=== PATIENT | male | born 1970 | race Caucasian/White ===

== ENCOUNTER 2020-01-02 17:33 | Inpatient (IN) | payer OTHER ==
[2020-01-02 18:30] VITALS: BMI 32.3
--- NOTE | 2020-01-02 20:36 | HP ---
COWS - Scale Resting Pulse: 2= [place] 101-120 Sweatin=Flushed/Facial Moisture Restless Observation: 0= Sits Still Pupil Size: 1= Pupils >than Normal Bone or Joint Aches: 2= Severe Diffuse Aches Runny Nose/ Eye Tearin= Nasal Congestion GI Upset > 30mins: 2= Nausea/Diarrhea (diarrhea x 4) Tremor Observation: 2= Slight Tremor Visible Yawning Observation: 0= None Anxiety or Irritability: 4=Extreme Anxiety Goose Flesh Skin: 0=Smooth Skin COWS Score: 16 CIWA Score Nausea/Vomitin Muscle Tremors: 3 Anxiety: 3 Agitation: 3 Paroxysmal Sweats: 2 Orientation: 2-Disoriented Date<2 days Tacttile Disturbances: 0-None Auditory Disturbances: 0-None Visual Disturbances: 0-None Headache: 0-None Present CIWA-Ar Total Score: 15 - Admission Criteria [facility]ASAS Guidelines: Admission for Medically Managed Detox: Requires at least one of the followin. CIWA greater than 12 2. Seizures within the past 24 hours 3. Delirium tremens within the past 24 hours 4. Hallucinations within the past 24 hours 5. Acute intervention needed for co occurring medical disorder 6. Acute intervention needed for co occurring psychiatric disorder 7. Severe withdrawal that cannot be handled at a lower level of care (continued vomiting, continued diarrhea, abnormal vital signs) requiring intravenous medication and/or fluids 8. Admission [facility] Chief Complaint: Seeking admission to detox from heroin Allergies/Adverse Reactions: Allergies Allergy/AdvReac Type Severity Reaction Status Date / Time No Known Allergies Allergy Verified 01/02/20 20:36 History of Present Illness: 49 years old male with 24 years of heroin dependence is seeking admission to detox. This is his first admission to [facility]. He was in the outpatient Methadone clinic as at 04/21/2013 and patient reports that he relapsed 2 months ago. He has medical history of hypertension and obesity, denies psych. history and suicide attempt / suicidal ideation at this time. Patient reports use of 2 bundles of heroin daily, last use was today. He denies blackouts or overdose. He is unemployed, homeless and denies legal issues. Patient's urine is positive for benzo. but he denies benzo dependence stating that he used it only twice a couple of days ago from a friend because he could not afford heroin Exam Limitations: No Limitations - Ebola screening Have you traveled outside of the country in the last 21 days: No Have you had contact with anyone from an Ebola affected area: No Have you been sick,other than usual withdrawal symptoms: No Do you have a fever: No - Review of Systems Constitutional: Chills, Malaise, Night Sweats, Changes in sleep EENT: reports: Nose Congestion Respiratory: reports: No Symptoms reported Cardiac: reports: No Symptoms Reported GI: reports: Diarrhea (x 4), Nausea, Poor Appetite, Poor Fluid Intake, Abdominal cramping : reports: No Symptoms Reported Musculoskeletal: reports: Other (muscle cramps) Integumentary: reports: Dryness Neuro: reports: Tremors Endocrine: reports: No Symptoms Reported Hematology: reports: No Symptoms Reported Psychiatric: reports: Mood/Affect Appropiate, Orientated x3 Other Systems: Reviewed and Negative Patient History - Patient Medical History Hx Anemia: No Hx Asthma: No Hx Chronic Obstructive Pulmonary Disease (COPD): No Hx Cancer: No Hx Cardiac Disorders: No Hx Congestive Heart Failure: No Hx Hypertension: Yes (Not on medication) Hx Hypercholesterolemia: No Hx Pacemaker: No HX Cerebrovascular Accident: No Hx Seizures: No Hx Dementia: No Hx Diabetes: No Hx Gastrointestinal Disorders: No Hx Liver Disease: No Hx Genitourinary Disorders: No Hx Sexually Transmitted Disorders: No Hx Renal Disease (ESRD): No Hx Thyroid Disease: No Hx Human Immunodeficiency Virus (HIV): No (Negative 2012) Hx Hepatitis C: No Hx Depression: No Hx Suicide Attempt: No (Denies suicidal ideation at this time) Hx Bipolar Disorder: No Hx Schizophrenia: No - Patient Surgical History Past Surgical History: No - PPD History Previous Implant?: No Documented Results: Negative w/o proof Implanted On Prior R Admission?: No PPD to be Administered?: Yes - Reproductive History Patient is a Female of Child Bearing Age (11 -55 yrs old): No (Male) - Smoking Cessation Smoking history: Current every day smoker Have you smoked in the past 12 months: Yes Aproximately how many cigarettes per day: 20 Hx Chewing Tobacco Use: No Initiated information on smoking cessation: Yes 'Breaking Loose' booklet given: 01/02/20 - Substance & Tx. History Hx Alcohol Use: No Hx Substance Use: Yes Substance Use Type: Cocaine, Heroin, Marijuana Hx Substance Use Treatment: No - Substances abused Heroin Substance route: Injection Frequency: Daily Amount used: 2 bundles Age of first use: 25 Date of last use: 01/02/20 Admission Physical Exam [facility] - Vital Signs Vital Signs: Vital Signs - 24 hr 01/02/20 18:28 Temperature 97.2 F L Pulse Rate 108 H Respiratory 20 Rate Blood Pressure 118/85 - Physical General Appearance: Yes: Moderate Distress, Tremorous, Sweating, Anxious HEENTM: Yes: Nasal Congestion Respiratory: Yes: Lungs Clear, Normal Breath Sounds, No Respiratory Distress Neck: Yes: Within Normal Limits Breast: Yes: Breast Exam Deferred Cardiology: Yes: Tachycardia Abdominal: Yes: Normal Bowel Sounds, Protuberent Genitourinary: Yes: Within Normal Limits Back: Yes: Normal Inspection Musculoskeletal: Yes: Within Normal Limits Extremities: Yes: Tremors Neurological: Yes: Within Normal Limits Integumentary: Yes: Dry - Diagnostic (1) Opioid dependence with withdrawal Current Visit: Yes Status: Acute (2) Hypertension Current Visit: Yes Status: Chronic Qualifiers: Hypertension type: unspecified Qualified Code(s): I10 - Essential (primary) hypertension (3) Nicotine dependence Current Visit: Yes Status: Chronic Qualifiers: Nicotine product type: cigarettes Substance use status: uncomplicated Qualified Code(s): F17.210 - Nicotine dependence, cigarettes, uncomplicated (4) Obesity Current Visit: Yes Status: Chronic Qualifiers: Obesity classification: adult class 1 (BMI 30 - 34.9) Serious obesity comorbidity presence: without serious comorbidity Cleared for Admission [facility] - Detox or Rehab [facility] Level of Care: Medically Managed Detox Regimen/Protocol: Methadone Claeared for Rehab Admission: No Breathalyzer - Breathalyzer Breathalyzer: 0 Urine Drug Screen - Test Device Lot number: [id number] Expiration date: 02/12/21 - Control Is test valid?: Yes - Results Drug screen NEGATIVE: No Urine drug screen results: THC-Marijuana, ANDRES-Cocaine, FEN-Fentanyl, MOP- Opiates, MTD-Methadone, BZO-Benzodiazepines Inpatient Rehab Admission - Rehab Decision to Admit Inpatient rehab admission?: No
[2020-01-02] MEDS ORDERED: BISMUTH SUBSALICYLATE 524 MG/30 ML UD PO PRN (20:54)
[2020-01-02] MEDS ORDERED: MENTHOL/PHENOL 1 EACH UD MM PRN (20:54)
[2020-01-02] MEDS ORDERED: cloNIDine HCL 0.1 MG TABLET PO PRN (20:54)
[2020-01-02] MEDS ORDERED: ACETAMINOPHEN 325 MG TABLET (FP) PO PRN ×2 (20:54)
[2020-01-02] MEDS ORDERED: MAG HYDROX/AL HYDROX/SIMETH 30 ML UNIT-DOSE CUP PO PRN (20:54)
[2020-01-02] MEDS ORDERED: NICOTINE POLACRILEX 2 MG GUM BUC PRN (20:54)
[2020-01-02] MEDS ORDERED: MAGNESIUM CITRATE 300 ML BOTTLE PO PRN (20:54)
[2020-01-02] MEDS ORDERED: IBUPROFEN 400 MG TABLET (FP) PO PRN (20:54)
[2020-01-02] MEDS ORDERED: MAGNESIUM HYDROX 2400MG/30ML ORAL SUSPENSION 30 ML CUP PO PRN (20:54)
[2020-01-02] MEDS ORDERED: METHOCARBAMOL 500 MG TABLET PO PRN (20:54)
[2020-01-02] MEDS ORDERED: ONDANSETRON *ODT* 4 MG TABLET SL ONE (21:00)
[2020-01-02] MEDS ORDERED: METHADONE HCL 10 MG TABLET (FOR DETOX USE ONLY) PO ONE (21:15)
[2020-01-02] MEDS: THIAMINE HCL 100 MG TABLET (FP) PO SCH (22:30)
[2020-01-02] MEDS: MELATONIN 5 MG TABLETS PO SCH (22:31)
[2020-01-02] MEDS: hydrOXYzine PAMOATE 25 MG CAPSULE (FP) PO PRN (22:31)
--- NOTE | 2020-01-03 09:29 | EKG ---
Test Reason : Blood Pressure : / mmHG Vent. Rate : 094 BPM Atrial Rate : 094 BPM P-R Int : 144 ms QRS Dur : 078 ms QT Int : 350 ms P-R-T Axes : 027 -02 045 degrees QTc Int : 437 ms NORMAL SINUS RHYTHM INFERIOR INFARCT , AGE UNDETERMINED ABNORMAL ECG NO PREVIOUS ECGS AVAILABLE Confirmed by Tremaine Murphy ([id number]) on 01/03/2020 9:29:20 AM Referred By: ABIGAL Confirmed By:Tremaine Murphy
[2020-01-03] MEDS ORDERED: METHADONE HCL 10 MG TABLET (FOR DETOX USE ONLY) ONE (09:42)
[2020-01-03] MEDS ORDERED: METHADONE HCL 5 MG TABLET (FOR DETOX USE ONLY) ONE (09:43)
[2020-01-03] MEDS ORDERED: METHADONE (DETOX) 20 MG, METHADONE (DETOX) 5 MG PO ONE (10:00)
[2020-01-03 10:18] LABS: HEMOGLOBIN 14.4 GM/dL (11.7-16.9); MCH 29.3 pg (25.7-33.7); MCHC 32.8 g/dl (32.0-35.9); MEAN CELL VOLUME 89.2 fl (80-96); MEAN PLT VOLUME 10.2 fl (7.5-11.1); PLATELET COUNT 158 K/MM3 (134-434); RBC 4.93 M/mm3 (4.00-5.60); RDW 15.2 % (11.9-15.9); WHITE BLOOD COUNT 9.6 K/mm3 (4.0-10.0)
[2020-01-03] MEDS: hydrOXYzine PAMOATE 25 MG CAPSULE (FP) PO PRN ×2 (10:19→22:36)
[2020-01-03] MEDS: NICOTINE 21 MG/24 HOURS TOPICAL PATCH TD SCH (10:19)
[2020-01-03] MEDS: PRENATAL VITAMINS W/ FOLIC ACID TABLET (FP) PO SCH (10:20)
[2020-01-03 10:29] LABS: ALBUMIN 2.8 g/dl (3.4-5.0); BILIRUBIN,TOTAL 0.3 mg/dL (0.2-1); BLOOD UREA NITROGEN 14.6 mg/dL (7-18); CALCIUM 9.5 mg/dL (8.5-10.1); CREATININE 1.2 mg/dL (0.55-1.3); TOT PROT 6.6 g/dl (6.4-8.2)
--- NOTE | 2020-01-03 13:07 | PN ---
[facility] COWS - Scale Resting Pulse: 0= [place] 80 or Below Sweatin= Chills/Flushing Restless Observation: 0= Sits Still Pupil Size: 1= Pupils >than Normal Bone or Joint Aches: 1= Mild Discomfort Runny Nose/ Eye Tearin= None GI Upset > 30mins: 2= Nausea/Diarrhea Tremor Observation of Outstretched Hands: 1= Tremor [place], Not Seen Yawning Observation: 0= None Anxiety or Irritability: 2=Irritable/Anxious Goose Flesh Skin: 3=Piloerection COWS Score: 11 BHS Progress Note (SOAP) Subjective: 49 years old male admitted on 01/02/20 for opiate withdrawal sx management treating with methadone detox regiment general body aches resting in bed limited conversation with staff prefers to stay in bed today Objective: 01/03/20 13:10 Vital Signs - 24 hr 01/02/20 01/02/20 01/02/20 18:28 21:30 21:57 Temperature 97.2 F L 97.2 F L 97.3 F L Pulse Rate 108 H 108 H 99 H Respiratory 20 20 18 Rate Blood Pressure 118/85 118/85 140/90 O2 Sat by Pulse 97 Oximetry (%) 01/03/20 01/03/20 06:52 08:25 Temperature 97.1 F L 97.3 F L Pulse Rate 75 69 Respiratory 18 17 Rate Blood Pressure 125/81 116/74 O2 Sat by Pulse 99 Oximetry (%) Laboratory Tests 01/03/20 01/03/20 01/03/20 08:15 08:15 08:15 WBC 9.6 RBC 4.93 Hgb 14.4 Hct 44.0 MCV 89.2 MCH 29.3 MCHC 32.8 RDW 15.2 Plt Count 158 MPV 10.2 Sodium 140 Potassium 4.0 Chloride 102 Carbon Dioxide 34 H Anion Gap 4 L BUN 14.6 Creatinine 1.2 Est GFR (CKD-EPI)AfAm 82.38 Est GFR (CKD-EPI)NonAf 71.08 Random Glucose 126 H Calcium 9.5 Total Bilirubin 0.3 AST 45 H ALT 42 Alkaline Phosphatase 80 Total Protein 6.6 Albumin 2.8 L Syphilis Serology Non-reactive 01/03/20 13:10 glucose elevation 01/03/20 13:11 fasting pending Assessment: 01/03/20 13:11 opiate withdrawal Plan: methadone regiment
[2020-01-03] MEDS ORDERED: cloNIDine HCL 0.1 MG TABLET PO PRN (13:09)
[2020-01-03] MEDS: THIAMINE HCL 100 MG TABLET (FP) PO SCH (22:34)
[2020-01-03] MEDS: MELATONIN 5 MG TABLETS PO SCH (22:34)
[2020-01-04] MEDS ORDERED: METHADONE HCL 10 MG TABLET (FOR DETOX USE ONLY) PO ONE (10:00)
[2020-01-04] MEDS: PRENATAL VITAMINS W/ FOLIC ACID TABLET (FP) PO SCH (10:16)
[2020-01-04] MEDS: NICOTINE 21 MG/24 HOURS TOPICAL PATCH TD SCH (10:17)
--- NOTE | 2020-01-04 10:25 | PN ---
[facility] COWS - Scale Resting Pulse: 0= [place] 80 or Below Sweatin= Chills/Flushing Restless Observation: 0= Sits Still Pupil Size: 1= Pupils >than Normal Bone or Joint Aches: 0= None Runny Nose/ Eye Tearin= Nasal Congestion GI Upset > 30mins: 1= Stomach Cramp Tremor Observation of Outstretched Hands: 1= Tremor [place], Not Seen Yawning Observation: 1= 1-2x During Session Anxiety or Irritability: 2=Irritable/Anxious Goose Flesh Skin: 0=Smooth Skin COWS Score: 8 BHS Progress Note (SOAP) Subjective: 49 years old male admitted on 01/02/20 for opiate withdrawal sx management treating with methadone detox regiment feeling better today discussing medication assisted treatment program mr morgan may consider the possibility of MAT encourage picking up narcan from pharmacy upon discharge from detox Objective: 01/04/20 10:27 Vital Signs - 24 hr 01/03/20 01/03/20 01/03/20 12:44 16:47 20:43 Temperature 97.5 F L 97.3 F L 97.5 F L Pulse Rate 71 73 69 Respiratory 20 18 18 Rate Blood Pressure 125/69 135/80 142/82 O2 Sat by Pulse 95 96 Oximetry (%) 01/04/20 01/04/20 06:25 09:16 Temperature 97.3 F L 97.3 F L Pulse Rate 65 67 Respiratory 16 18 Rate Blood Pressure 158/86 150/86 O2 Sat by Pulse 98 98 Oximetry (%) Laboratory Tests 01/03/20 01/03/20 01/03/20 08:15 08:15 08:15 WBC 9.6 RBC 4.93 Hgb 14.4 Hct 44.0 MCV 89.2 MCH 29.3 MCHC 32.8 RDW 15.2 Plt Count 158 MPV 10.2 Sodium 140 Potassium 4.0 Chloride 102 Carbon Dioxide 34 H Anion Gap 4 L BUN 14.6 Creatinine 1.2 Est GFR (CKD-EPI)AfAm 82.38 Est GFR (CKD-EPI)NonAf 71.08 Random Glucose 126 H Calcium 9.5 Total Bilirubin 0.3 AST 45 H ALT 42 Alkaline Phosphatase 80 Total Protein 6.6 Albumin 2.8 L Syphilis Serology Non-reactive bp elevation initiate amlodipine 10 mg po daily continue clonidine 0.1 mg po prn fasting glucose pending 01/04/20 10:29 Assessment: 01/04/20 10:30 opiate withdrawal Plan: methadone regiment
[2020-01-04] MEDS ORDERED: amLODIPine BESYLATE 10 MG TABLET (FP) PO SCH (11:00)
[2020-01-04 17:44] VITALS: BP 144/88; PULSE 75; TEMP 97.5
--- NOTE | 2020-01-04 18:51 | DS ---
[facility] Detox Discharge Summary Admission Date: 01/02/20 - History Additional Comments: advised by nursing that pt is requesting to leave . Pt declined to offer a specific reason , states " I just want to leave , tx is voluntary , I signed my self in , I am signing myself out " . reports he will be going to his mother's house . Declined additional medical care . Ambulating freely , denies complaints . Risks of leaving AMA discussed w/ pt , pt verbalized understanding and indicated he wished to proceed with discharge. Vital Signs - 24 hr 01/03/20 01/04/20 01/04/20 20:43 06:25 09:16 Temperature 97.5 F L 97.3 F L 97.3 F L Pulse Rate 69 65 67 Respiratory 18 16 18 Rate Blood Pressure 142/82 158/86 150/86 O2 Sat by Pulse 96 98 98 Oximetry (%) 01/04/20 01/04/20 12:47 16:36 Temperature 97.3 F L 97.5 F L Pulse Rate 62 75 Respiratory 18 16 Rate Blood Pressure 139/85 144/88 O2 Sat by Pulse 98 98 Oximetry (%) - Physical Exam Results Vital Signs: Vital Signs Temperature 97.5 F L 01/04/20 16:36 Pulse Rate 75 01/04/20 16:36 Respiratory Rate 16 01/04/20 16:36 Blood Pressure 144/88 01/04/20 16:36 O2 Sat by Pulse Oximetry (%) 98 01/04/20 16:36 - Medication Discharge Medications: Ambulatory Orders Naloxone HCl [Narcan] 4 mg NS ASDIR PRN #1 spray 01/04/20 - AMA Did Patient Leave Against Medical Advice: Yes
[2020-01-05] MEDS ORDERED: METHADONE (DETOX) 10 MG, METHADONE (DETOX) 5 MG PO ONE (10:00)
[2020-01-06] MEDS ORDERED: METHADONE HCL 10 MG TABLET (FOR DETOX USE ONLY) PO ONE (10:00)
[2020-01-07] MEDS ORDERED: METHADONE HCL 5 MG TABLET (FOR DETOX USE ONLY) PO ONE (06:00)
== END 2020-01-04 18:41 | disposition left against medical advice (07) | DRG 770 ==
LOC: YASAS 17:33 → Y3N 20:44
PROVIDERS: ADMIT Allergy & Immunology; ATTEND Allergy & Immunology
PROC: HZ2ZZZZ Detoxification Services for Substance Abuse Treatment (ICD-10-PCS; principal; 2020-01-02)
DX: F11.23 Opioid dependence with withdrawal (principal); F13.10 Sedative, hypnotic or anxiolytic abuse, uncomplicated; F17.210 Nicotine dependence, cigarettes, uncomplicated; I10 Essential (primary) hypertension; E66.9 Obesity, unspecified; Z68.32 Body mass index [BMI] 32.0-32.9, adult
CPT/HCPCS: 36415; 80053; 85027; 86780; 93005; 93010; J0735; Q0162; U0003